=== PATIENT | male | born 1940 | race Caucasian/White ===

== ENCOUNTER 2017-07-20 15:35 | Inpatient (IN) | payer OTHER ==
[~2017-07-20] VITALS: Ht 177.8 cm; Wt 60.0 kg
--- NOTE | ~2017-07-20 | D ---
[facility] [place] [address] DISCHARGE SUMMARY Name: CRESCENCIO DIETRICH Room #: 422-P [facility] IN M.R.#: [id number] Admission: 07/20/17 Attend Phys: Ron Mathew MD Discharge: 07/20/17 Date of : 40 Report #: [id number] THIS REPORT FOR: //name// CC: Jonatan Mathew DATE OF SERVICE: 07/20/2017 HOSPITAL COURSE: The patient was recommended for admission to the hospital for treatment of his back pain by Dr. Patel after an office visit. Upon arrival to the floor, as the nurses began their assessment and completing orders such as lab work and x-ray, the patient refused everything and demanded to leave. He left without receiving any medical care. <ELECTRONICALLY SIGNED> By: Ron Mathew MD 08/13/17 0855 1503 1548 Ron Mathew MD /nt
[~2017-07-20 15:35] MED LIST: ADULT LOW DOSE81 MG PO; APRISO0.375 GM PO; ASPIRIN EC81 M1 PO; ASPIRIN81 M2 PO; AUGMENTIN 875875 M1 PO; BENADRYL25 MG PO; CIPROFLOXACIN500 M3; COLACE100 MG PO; DILAUDID 2 MG TA2 MG PO; GLYCOLAX POWDER17 G1; GLYCOLAX POWDER17 G1 PO; HYDROCODON-ACE1 EAC5 PO; METHOCARBAMOL750 MG PO; METRONIDAZOLE500 M4; NORCO 10-325 T1 EACH PO; PERCOCET 7.5-31 EACH PO; PROTONIX 20 MG20 M1 PO; PROTONIX40 M2 PO; SENNA-S TABLET1 EACH PO; XANAX 0.25 MG0.25 MG PO
[2017-07-20 15:53] VITALS: BP 127/85
[2017-07-21] MEDS ORDERED: XALATAN2.5 ML OPHTHALMIC (09:28)
[2017-07-21] MEDS ORDERED: OMEPRAZOLE 20 M20 M1 PO (09:29)
[2017-07-21] MEDS ORDERED: TIMOLOL MA0.25 %/52 (09:29)
[2017-08-16] MEDS ORDERED: NORCO 10-325 T1 EACH PO (10:37)
== END 2017-07-20 17:06 | disposition home or self-care (01) | DRG 552 ==
LOC: 4E 15:35
DX: M54.9 Dorsalgia, unspecified (principal); M19.90 Unspecified osteoarthritis, unspecified site; M54.32 Sciatica, left side; F41.9 Anxiety disorder, unspecified; Z86.010 Personal history of colon polyps; Z79.899 Other long term (current) drug therapy; Z79.82 Long term (current) use of aspirin
CPT/HCPCS: 10783

== ENCOUNTER → 2017-08-16 | Outpatient (CLI) | payer OTHER ==
[~2017-08-16] VITALS: Ht 172.7 cm; Wt 61.7 kg
[~2017-08-16] MED LIST changes: +OMEPRAZOLE 20 M20 M1 PO; +TIMOLOL MA0.25 %/52; +XALATAN2.5 ML OPHTHALMIC
--- NOTE | ~2017-08-16 | HPC ---
[facility] [place] [address] PAIN MANAGEMENT CONSULTATION Name: CRESCENCIO DIETRICH Room #: REG CL Jhonatan.#: [id number] Admission: 08/16/17 Attend Phys: Prosper Arriaza DO Discharge: Date of : 40 Report #: [id number] THIS REPORT FOR: //name// CC: Jonatan Arriaza DATE OF SERVICE: 08/16/2017 HISTORY OF PRESENT ILLNESS: The patient is a 77-year-old gentleman, I prior saw back in 2012. He was seen by Dr. Александр Glass on 07/21/2017, had a transforaminal epidural injection for ongoing lumbar radicular pain status post decompressive laminectomy, has a fusion at L4-L5. Notes incremental relief following injection, but still has pain, paresthesia in the left leg anterior ventura. PHYSICAL EXAMINATION: GENERAL: Shows a 77-year-old gentleman, BMI is 20.7 kilograms per meter squared. VITAL SIGNS: Stable as noted in the EMR. MUSCULOSKELETAL: Rises from the chair using the armrest. Antalgic gait favoring the right leg. Slight decreased left hip flexion, lower extremity extension strength. Slight decreased 2-point discrimination, left anterior ventura. Decreased left plantar flexion strength. ASSESSMENT: Symptomatic lumbar radiculopathy by clinical exam and history. RECOMMENDATIONS: Proceed with a left L3-L4 transforaminal epidural injection under fluoroscopy. Follow up simply as needed. PROCEDURE: Transforaminal lumbar epidural injection under fluoroscopy. PROCEDURE NOTE: After both written and informed consent was obtained including risk of spinal cord damage, infection, increased pain and paralysis, the patient agreed to proceed. The patient was taken to the fluoroscopy suite, placed in a prone position with appropriate abdominal bolstering. After sterile prep with ChloraPrep and sterile drape, a skin wheal with 1% Xylocaine was raised. A 22 gauge 4-1/2 inch epidural Tuohy needle was inserted. From an oblique approach into the posterior-superior aspect of the left L3-L4 neural foramen with continuous pressure on the glass syringe plunger for loss of resistance. Glass syringe was filled with 2 mL of 0.1 Xylocaine. The glass loss of resistance syringe was removed. A low volume extension tubing was connected, negative aspiration was accomplished for cerebrospinal fluid or blood. 1 mL of Omnipaque was injected which showed spread both within the epidural space and laterally along the nerve root. This was followed with 80 mg of triamcinolone plus 1 mL of 1.5% preservative-free Xylocaine. Needle was partially withdrawn, 0.5 mL of Xylocaine was injected to clear the needle and the needle was removed. The [address] [address] PAIN MANAGEMENT CONSULTATION Name: CRESCENCIO DIETRICH FRANCI Room #: REG SIXTO Crain#: [id number] Admission: 08/16/17 Attend Phys: Prosper Arriaza DO Discharge: Date of : 40 Report #: [id number] was cleansed, band-aid was applied. The patient was allowed to ambulate to the recovery room, discharged in good and stable condition. <ELECTRONICALLY SIGNED> By: Prosper Arriaza DO 08/18/17 0819 1234 1723 Prosper Arriaza DO /nt
[2017-08-16 10:39] VITALS: BP 133/79
== END | disposition home or self-care (01) ==
LOC: PAIN 07:02
DX: M54.16 Radiculopathy, lumbar region (principal)

== ENCOUNTER → 2019-03-29 | Outpatient (CLI) | payer OTHER ==
[~2019-03-29] VITALS: Ht 175.3 cm; Wt 62.1 kg
[~2019-03-29] MED LIST changes: +COSOPT OCUMETER10 M1 OPHTHALMIC; +TERBINAFINE HC250 MG PO
--- NOTE | 2019-03-30 10:45 | P ---
[facility] [place] [address] PROCEDURE REPORT Name: CRESCENCIO DIETRICH Room #: REG [facility] Paras#: [id number] Admission: 03/29/19 Attend Phys: Chriss Newman Discharge: Date of : 40 Report #: [id number] THIS REPORT FOR: //name// CC: LAXMI Patel DATE OF SERVICE: 03/29/2019 PROCEDURE PERFORMED: Colonoscopy with biopsies. HISTORY OF PRESENT ILLNESS: The patient is a 78-year-old male with a history of ulcerative colitis, currently on Apriso 3 per day. He denies any diarrhea or blood in the stools. Also, has a previous history of colon polyps. DESCRIPTION OF PROCEDURE: The risks and benefits of the procedure were explained to the patient, those risks including but not limited to bleeding, perforation, and the risk of sedation. He understood these risks and gave informed consent. Sedation was given using propofol per anesthesia. Next, a digital rectal exam was initially performed, which was normal. Next, using a standard Olympus colonoscope, the scope was placed in the patient's anus and advanced under direct vision to the cecum. The overall prep was good. The cecum and ileocecal valve were normal in appearance. In the ascending colon, a single 3-mm sessile polyp was noted. This was removed with cold forceps. Random biopsies were obtained in each segment of the colon today because of his history of ulcerative colitis. In the transverse colon, a 5-mm sessile polyp was noted, also removed with cold forceps. Descending colon was normal. In the sigmoid colon, multiple small diverticula were noted. Also, were noted were multiple pseudopolyps. Again, biopsies were obtained in this segment. Rectal mucosa was normal. On retroflexion, no abnormalities were noted. The scope was then withdrawn and the procedure terminated. The patient tolerated the procedure well. IMPRESSION: 1. Small colonic polyps. 2. Pseudopolyps in the sigmoid colon. 3. Sigmoid diverticulosis. 4. Otherwise, normal colonoscopy. RECOMMENDATIONS: 1. Await biopsy results. 2. Consider repeat colonoscopy in [address] [address] PROCEDURE REPORT Name: CRESCENCIO DIETRICH Room #: REG Rut Crain#: [id number] Admission: 03/29/19 Attend Phys: Chriss Newman Discharge: Date of : 40 Report #: [id number] Thank you for allowing me to participate in his care. <ELECTRONICALLY SIGNED> By: Chriss Cortés MD 03/30/19 1045 1221 1250 Chriss Cortés MD /nt
--- NOTE | 2019-03-30 10:45 | P ---
[facility] [place] [address] PROCEDURE REPORT Name: CRESCENCIO DIETRICH Room #: REG [facility] Paras#: [id number] Admission: 03/29/19 Attend Phys: Chriss Newman Discharge: Date of : 40 Report #: [id number] THIS REPORT FOR: //name// CC: Nazario Patel DATE OF SERVICE: 03/29/2019 PROCEDURE PERFORMED: Upper endoscopy with esophageal dilation. HISTORY OF PRESENT ILLNESS: The patient is a 78-year-old male with a history of dysphagia. He underwent an upper endoscopy with dilation several years ago, which was helpful. He is beginning to have dysphagia again to pills. He is on daily PPI therapy. DESCRIPTION OF PROCEDURE: The risks and benefits of the procedure were explained to the patient, those risks including but not limited to bleeding, perforation and the risk of sedation. He understood these risks and gave informed consent. Sedation was given using propofol per anesthesia. Next, using a standard Olympus upper endoscope, the scope was placed in the patient's mouth and advanced under direct vision through the esophagus, stomach and into the second portion of the duodenum. The larynx was normal in appearance. The esophagus was normal throughout. The GE junction was normal. No evidence of stricture. Overall, the gastric mucosa was normal. The pylorus was normal and patent. The duodenal bulb, first and second portion were all normal. The scope was then brought back up into the patient's stomach and a Savary guidewire was inserted through the scope, leaving the guidewire in place as the scope was then withdrawn. Next, a 48-Tamazight Savary dilation of the esophagus was then performed without difficulty. The wire and dilator were removed. The scope was reintroduced into the patient's stomach. There was no evidence of mucosal tear after dilation. The scope was then withdrawn and the procedure terminated. The patient tolerated the procedure well. IMPRESSION: Normal upper endoscopy. RECOMMENDATIONS: 1. Continue daily PPI therapy. 2. Observe the patient post-dilation. 3. Plan is to proceed with colonoscopy next today. [address] [address] PROCEDURE REPORT Name: CRESCENCIO DIETRICH Room #: REG SIXTO Crain#: [id number] Admission: 03/29/19 Attend Phys: Chriss Newman Discharge: Date of : 40 Report #: [id number] Thank you for allowing me to participate in his care. <ELECTRONICALLY SIGNED> By: Chriss Cortés MD 03/30/19 1045 1152 1158 Chriss Cortés MD /nt
--- NOTE | 2019-04-03 13:07 | PATH ---
[facility] [place] [address] PATHOLOGY RPT PROCEDURE Name: CRESCENCIO DIETRICH Room #: REG CL MLiz.#: [id number] Admission: 03/29/19 Date of : 40 Discharge: Report #: [id number] Path Case #: [id number] [facility] Accession Number: [id number] . 01 Material submitted: . PART A: colon - BIOPSY OF ASCENDING COLON. Modifiers: ascending PART B: colon - POLYP AT ASCENDING COLON. Modifiers: ascending PART C: colon - POLYP AT TRANSVERSE COLON. Modifiers: transverse PART D: colon - BIOPSY OF TRANSVERSE COLON. Modifiers: transverse PART E: colon - BIOPSY OF DESCENDING COLON. Modifiers: descending PART F: colon - BIOPSY OF SIGMOID COLON/PSUEDO POLYPS PART G: rectum - BIOPSY OF RECTUM . 01 Clinical history: . Dysphagia; history of polyps; history of ulcerative colitis . 02 Diagnosis: A. Colon, ascending, biopsy: - Colonic mucosa with mild chronic inflammation. - No evidence of acute or chronic colitis. . B. Colon, ascending, biopsy: - Hyperplastic polyp. . C. Colon, transverse, biopsy: - Hyperplastic polyp. . D. Colon, transverse, biopsy: - Colonic mucosa with mild chronic inflammation. - No evidence of acute or chronic colitis. . E. Colon, descending, biopsy: - Colonic mucosa with mild chronic inflammation. - No evidence of acute or chronic colitis. - Tiny fragment of colonic mucosa with changes consistent with adenomatous polyp. . F. Colon, sigmoid, biopsy: - Hyperplastic polyps. - No evidence of ulceration. . G. Colon, rectum, biopsy: - Colonic mucosa with mild chronic inflammation. - No evidence of acute or chronic colitis. . (SKM:mary jo; 04/03/2019) [facility] 04/03/[address] [address] PATHOLOGY RPT PROCEDURE Name: CRESCENCIO DIETRICH Room #: REG CLI Paras#: [id number] Admission: 03/29/19 Date of : 40 Discharge: Report #: [id number] Path Case #: [id number] . 02 Electronically signed: . Krystian Hurd MD, Pathologist NPI- [id number] . 01 Gross description: . A. The specimen is received in formalin, labeled "alfonzo Solorzano of ascending colon". Received are four segments of pale du soft tissue ranging in size from 0.3 to 0.5 cm in maximum dimensions. The specimen is submitted entirely in cassette A1. . B. The specimen is received in formalin, labeled "Jeffers Zammar, polyp at ascending colon". Received is a segment of pale du soft tissue measuring 0.5 cm in maximum dimensions. The specimen is submitted entirely in cassette B1. . C. The specimen is received in formalin, labeled "Jeffers Zammar, polyp at transverse colon". Received are three segments of pale du soft tissue ranging in size from 0.1 to 0.5 cm in maximum dimensions. The specimen is submitted entirely in cassette C1. . D. The specimen is received in formalin, labeled "Jeffers Zammar, biopsy of transverse colon". Received are four segments of pale du soft tissue ranging in size from 0.3 to 0.4 cm in maximum dimensions. The specimen is submitted entirely in cassette D1. . E. The specimen is received in formalin, labeled "Jeffers Zammar, biopsy of descending colon". Received are five segments of pale du soft tissue ranging in size from 0.1 to 0.5 cm in maximum dimensions. The specimen is submitted entirely in cassette E1. . F. The specimen is received in formalin, labeled "Jeffers Zammar, biopsy of sigmoid colon pseudopolyps". Received are five segments of pale du soft tissue ranging in size from 0.2 to 0.4 cm in maximum dimensions. The specimen is submitted entirely in cassette F1. . G. The specimen is received in formalin, labeled "Jeffers Zammar, biopsy of rectum". Received are four segments of pale du soft tissue ranging in size from 0.2 to 0.5 cm in maximum dimensions. The specimen is submitted entirely in cassette G1. (CAA; 03/31/2019) QAC/QAC 03/31/2019 1156 Local . 02 Pathologist provided ICD-10: K52.9, K63.5, K62.89 . 02 CPT . 013046, 904097, 524625, 722357, 364891, 058098, [id number] [address] [address] PATHOLOGY RPT PROCEDURE Name: CRESCENCIO DIETRICH Room #: REG SIXTO [place].#: [id number] Admission: 03/29/19 Date of : 40 Discharge: Report #: [id number] Path Case #: [id number] Specimen Comment: A courtesy copy of this report has been sent to [phone] Specimen Comment: [phone] Specimen Comment: Report sent to / DR HOFFMAN Performed at: [address] [facility], [place] [id number] MD Thai Merino MD Phone: [phone] Performed at: [address] [facility] [id number] MD Tianna Templeton MD Phone: [phone]
== END | disposition home or self-care (01) ==
LOC: GI 09:22
DX: K63.5 Polyp of colon (principal); K52.9 Noninfective gastroenteritis and colitis, unspecified; K62.89 Other specified diseases of anus and rectum; K57.30 Diverticulosis of large intestine without perforation or abscess without bleeding; R13.19 Other dysphagia; K51.90 Ulcerative colitis, unspecified, without complications; F41.9 Anxiety disorder, unspecified; I25.2 Old myocardial infarction; Z86.010 Personal history of colon polyps; Z85.828 Personal history of other malignant neoplasm of skin; Z98.42 Cataract extraction status, left eye; Z98.890 Other specified postprocedural states; Z79.899 Other long term (current) drug therapy; Z79.82 Long term (current) use of aspirin
CPT/HCPCS: 62110; 62900

== ENCOUNTER 2020-06-11 14:39 | Emergency (ER) | payer OTHER ==
[~2020-06-11] VITALS: Ht 175.3 cm; Wt 67.1 kg
[2020-06-11 15:29] LABS: URINE BILIRUBIN NEGATIVE (Negative); URINE BLOOD NEGATIVE (Negative); URINE CLARITY CLEAR; URINE COLOR YELLOW; URINE GLUCOSE-RANDOM* NEGATIVE (Negative); URINE KETONES NEGATIVE (Negative); URINE LEUKOCYTES-REFLEX NEGATIVE (Negative); URINE NITRITE-REFLEX NEGATIVE (Negative); URINE PROTEIN (DIPSTICK) NEGATIVE (Negative); URINE SPECIFIC GRAVITY 1.025 (1.005-1.035); URINE UROBILINOGEN 0.2 E.U./dl (0.2-1.0)
[2020-06-11 17:27] LABS: ABSOLUTE NEUTROPHILS 8.2 thou/uL (1.4-8.2); BASOPHILS 0.5 % (0.0-2.0); EOSINOPHILS 0.7 % (0.0-3.0); HEMATOCRIT 40.4 % (42.0-52.0); HEMOGLOBIN 13.2 gm/dL (14.0-18.0); LYMPHOCYTES 15.8 % (24.0-44.0); MCH 28.8 pg (26.0-34.0); MCHC 32.7 g/dL (28.0-37.0); MCV 88.2 fL (80.0-100.0); MONOCYTES 5.8 % (1.0-8.0); PLATELET COUNT 224 thou/uL (150-400); POLYS 77.2 % (36.0-66.0); RBC 4.58 mil/uL (4.50-6.00); RDW 14.7 % (10.5-14.5); WBC 10.6 thou/uL (4.0-11.0)
[2020-06-11 17:39] LABS: ANION GAP 8 mmol/L (7-16); BUN 20 mg/dL (7-18); CALCIUM 9.9 mg/dL (8.5-10.1); CHLORIDE 103 mmol/L (98-107); CO2 28 mmol/L (21-32); CREATININE 1.1 mg/dL (0.7-1.3); GLUCOSE 101 mg/dL (74-106); SODIUM 139 mmol/L (136-145)
[2020-06-11 17:49] LABS: DIRECT BILIRUBIN 0.1 mg/dL (<0.1-0.2); SGOT 13 U/L (15-37); SGPT 15 U/L (16-63); TOTAL BILIRUBIN 0.6 mg/dL (0.2-1.0); TOTAL PROTEIN 8.5 g/dL (6.4-8.2); TROPONIN-I <0.06 ng/mL (<0.06)
[2020-06-11 18:56] VITALS: BP 158/86
--- NOTE | 2020-06-12 07:21 | EKG ---
[place] [address] [facility] [place] [address] ELECTROCARDIOGRAM REPORT Name: CRESCENCIO DIETRICH FRANCI [id number] Admission: 06/11/20 Attend Phys: Discharge: 06/11/20 Date of : 40 Report #: [id number] [facility] ED Test Date: 2020-06-11 Test Time: 14:51:03 Pat Name: CRESCENCIO DIETRICH Department: Room: Gender: Dog Raiser: KF : 1940 Requested By: Lars Espinoza Order Number: [id number] MD: Lele Kate Measurements Intervals [place] Rate: 76 P: 51 NC: 145 QRS: 26 QRSD: 75 T: 69 QT: 381 QTc: 429 Interpretive Statements Sinus rhythm Abnormal R-wave progression, early transition Compared to ECG 09/23/2016 11:43:29 Myocardial infarct finding no longer present Electronically Signed On 06-12-2020 7:21:15 [employer] by Lele Kate [email or web address] <ELECTRONICALLY SIGNED> By: Lele Kate MD, [facility] 06/12/20 0721 145 1451 Lele Kate MD, FACC /EPI
== END 2020-06-11 18:56 | disposition home or self-care (01) ==
LOC: ER 14:39
PROVIDERS: Emergency Medicine
DX: F41.9 Anxiety disorder, unspecified (principal); K21.9 Gastro-esophageal reflux disease without esophagitis; Z79.82 Long term (current) use of aspirin; Z79.899 Other long term (current) drug therapy; Z87.891 Personal history of nicotine dependence

== ENCOUNTER → 2020-06-20 | Outpatient (CLI) | payer OTHER | LOC: CAT 11:10 | PROVIDERS: ATTEND Internal Medicine | DX: G45.9 Transient cerebral ischemic attack, unspecified (principal); R26.89 Other abnormalities of gait and mobility; G31.9 Degenerative disease of nervous system, unspecified ==